=== PATIENT | female | born 1970 ===

== ENCOUNTER 2016-07-16 07:46 | Emergency (ER) | payer BC ==
[~2016-07-16 07:46] MED LIST: ALDACTONE DPS25 MG PO; ASPIR-LOW81 MG PO; COREG DPS6.25 MG PO; GLUCOPHAGE DPS850 MG PO; NITROSTAT0.4 MG SL; NORVASC5 MG PO; PLAVIX75 MG PO; PRAVACHOL20 MG PO
--- NOTE | 2016-07-20 12:33 | ER ---
ADMIT: 07/16/2016 RM/LOC: ER [facility] MR#: [id number] [place], [place] [id number] SANDRA MONTES [address] [address] Emergency Room Report SEX: F AGE: 46 : 1970 DATE: 07/16/2016 ADDENDUM: A 46-year-old female who evidently had a little syncopal episode at work. She is diabetic and also had stents in the past. She had no chest pain. Her troponin and EKG all looked okay. Chest x-ray was negative as well. Troponin as well and she has not had any pain since she has been here. At this time, we gave her a liter of fluid and then discharged her home. I spoke to Dr. Khoury on the phone. She will be followed up in the office this week. She was advised on this and make an appointment this week and then follow up as soon as she makes the appointment for this week again. CONDITION ON DISCHARGE: Good. Mele Hale MD/ randi JOB #: [id number] CC: Mele Hale MD, Attending Physician Arline Dickerson MD, Family Physician
== END 2016-07-16 10:31 | disposition home or self-care (01) ==
LOC: ER 07:46
DX: R55 Syncope and collapse (principal); R53.1 Weakness; I10 Essential (primary) hypertension; E11.9 Type 2 diabetes mellitus without complications; Z79.899 Other long term (current) drug therapy